=== PATIENT | female | born 1955 | race Caucasian/White ===

== ENCOUNTER → 2021-07-15 08:54 | Outpatient (BNVA) | payer BC, SELFPAY | PROVIDERS: Visit Provider Internal Medicine | DX: E21.3 Hyperparathyroidism, unspecified (principal); N20.0 Calculus of kidney; Z87.81 Personal history of (healed) traumatic fracture | CPT/HCPCS: 99214 ==

== ENCOUNTER 2021-07-15 09:56 | Outpatient (CLI) | payer BC, SELFPAY ==
[2021-07-15 10:28] LABS: Ionized Calcium 1.2 mmol/L (1.1-1.4)
[2021-07-15 11:05] LABS: Free T4 Free Thyroxine 1.05 ng/dL (0.82-1.77)
[2021-07-15 11:28] LABS: Calcium 9.6 mg/dL (8.5-10.5)
[2021-07-15 11:34] LABS: Parathyroid Hormone 84.8 pg/mL (15-65)
[2021-07-15 11:44] LABS: 25 Hydroxy Vitamin D 34 ng/mL (30-100)
== END 2021-07-15 09:57 | disposition home or self-care (01) ==
LOC: LAB 10:02
PROVIDERS: PCP Family Medicine; Visit Provider Internal Medicine
DX: E21.3 Hyperparathyroidism, unspecified (principal); R53.83 Other fatigue; D41.01 Neoplasm of uncertain behavior of right kidney; N20.0 Calculus of kidney; Z87.442 Personal history of urinary calculi; Z98.890 Other specified postprocedural states
CPT/HCPCS: 36415; 82306; 82310; 82330; 83970; 84439; 84443

== ENCOUNTER → 2021-10-09 08:15 | Outpatient (BNVA) | payer MEDICARE, SELFPAY | PROVIDERS: PCP Family Medicine; Visit Provider Internal Medicine | DX: E21.3 Hyperparathyroidism, unspecified (principal); N20.0 Calculus of kidney; E55.9 Vitamin D deficiency, unspecified; R53.83 Other fatigue; Z87.81 Personal history of (healed) traumatic fracture | CPT/HCPCS: 99214 ==

== ENCOUNTER → 2021-12-26 10:42 | Outpatient (BNVA) | payer MEDICARE, SELFPAY | PROVIDERS: PCP Family Medicine; Visit Provider Internal Medicine | DX: E21.3 Hyperparathyroidism, unspecified (principal); N20.0 Calculus of kidney; R53.83 Other fatigue; Z87.81 Personal history of (healed) traumatic fracture | CPT/HCPCS: 99214 ==